=== PATIENT | female | born 1985 | race Hispanic/Latino ===

== ENCOUNTER 2019-09-27 18:40 | Emergency (ER) | payer SELFPAY ==
[2019-09-27 23:28] LABS: Bacteria/HPF 4+ HPF (None Seen); Bilirubin Negative (Negative); Blood, Urine Negative (Negative); Clarity Turbid (Clear); Glucose, Urine (Dipstick) Normal (Negative); Leukocyte 500 Leu/uL (Negative); Nitrite Negative (Negative); Protein, Urine (Dipstick) Negative (Neg-Trace); Renal Epithelial 0-3 HPF (None Seen); Urobilinogen Normal mg/dL (Less than 2); WBC/HPF Greater than 50 HPF (0-3)
[2019-09-28] MEDS ORDERED: Ondansetron ODT 4 MG TAB ONE (00:18)
[2019-09-28] MEDS ORDERED: Lidocaine 1% PF 5 ML VIAL ONE (00:18)
[2019-09-28] MEDS ORDERED: cefTRIAXone\\ROCEPHIN 1 GM VIAL ONE (00:18)
--- NOTE | 2019-09-28 07:49 | RAD ---
EXAM: Chest PA and lateral: HISTORY: Cough. COMPARISON: None. FINDINGS: Heart: Normal cardiac silhouette Aorta: Unremarkable Pulmonary vessels: Normal Costophrenic angles: Costophrenic angles are clear. Lungs: No consolidation or masses. Pneumothorax: No pneumothorax Osseous structures: No osseous abnormalities IMPRESSION: No acute cardiopulmonary process.
== END 2019-09-28 01:25 | disposition home or self-care (01) ==
LOC: ERS 18:40
DX: J10.1 Influenza due to other identified influenza virus with other respiratory manifestations (principal); N39.0 Urinary tract infection, site not specified
CPT/HCPCS: 71046; 81003; 81015; 87077; 87086; 87186; 87804; 96372; J0696; J2001; Q0162